=== PATIENT | female | born 1970 | race Caucasian/White ===

== ENCOUNTER 2016-04-10 14:06 | Emergency (ER) | payer MEDICAID, OTHER, SELFPAY ==
[2016-04-10] MEDS ORDERED: KETOROLAC 30 MG/ML VIAL (J1885) As Ordered ONE (16:05)
[2016-04-10] MEDS ORDERED: UNASYN 3 GM VIAL As Ordered ONE (16:07)
[2016-04-10 16:12] LABS: BASO % 0.3 % (0.0-1.0); EOS # 0.2 K/mm3 (0.0-0.50); EOS % 1.6 % (0.0-3.0); LARGE UNSTAINED CELL # 0.1 K/mm3 (0.0-0.4); LARGE UNSTAINED CELL % 1.4 % (0.0-4.0); LYMPH # 1.8 K/mm3 (1.5-4.5); LYMPH % 17.4 % (24.0-44.0); MEAN CORPUSCULAR HEMOGLOBIN 28.9 pg (27.0-33.0); MEAN CORPUSCULAR HGB CONC 32.7 g/dl (32.0-36.5); MEAN CORPUSCULAR VOLUME 88.5 fl (80.0-96.0); MONO # 0.6 K/mm3 (0.0-0.8); MONO % 5.6 % (0.0-5.0); NEUTROPHILS # 7.1 K/mm3 (1.8-7.7); NEUTROPHILS % 73.5 % (36.0-66.0); PLATELET COUNT, AUTOMATED 214 k/mm3 (150-450); RED CELL DISTRIBUTION WIDTH 12.7 % (11.5-14.5); WHITE BLOOD COUNT 9.7 K/mm3 (4.0-10.0)
[2016-04-10 16:28] LABS: ANION GAP 7 MEQ/L (8-16); BLOOD UREA NITROGEN 10 MG/DL (7-18); CALCIUM LEVEL 8.5 MG/DL (8.5-10.1); CARBON DIOXIDE LEVEL 26 MEQ/L (21-32); CHLORIDE LEVEL 108 MEQ/L (98-107); CREATININE FOR GFR 0.75 MG/DL (0.55-1.02); GLOMERULAR FILTRATION RATE > 60.0 (>58); GLUCOSE, FASTING 91 MG/DL (70-105); POTASSIUM SERUM 3.9 MEQ/L (3.5-5.1); SODIUM LEVEL 141 MEQ/L (136-145)
[2016-04-10] MEDS ORDERED: ISOVUE-370 76% 100ML VIAL (Q9967) As Ordered ONE (16:48)
--- NOTE | 2016-04-10 17:27 | REP ---
Clinical: Right facial swelling and pain. Technique: Axial contrast enhanced images from the skull base to the thoracic inlet with coronal and sagittal re-formations using 100 ml Isovue 370 intravenous contrast material. Findings: Right perimandibular inflammatory stranding is appreciated without abscess, drainable collection, or mass lesion. The osseous structures and dentition appear relatively normal. The visualized sinuses and mastoid air cells are clear. The orbits are symmetric. The nasopharyngeal and oropharyngeal airway is patent, midline and without mass effect. Mild right-sided prominent lymph nodes likely reactive. Impression: Right-sided perimandibular inflammatory stranding without abscess, mass, or drainable collection. Mild associated reactive lymph nodes. Signed by Eric Layne MD 04/10/2016 05:19 P
--- NOTE | 2016-04-10 17:38 | EDDOCDS ---
Physician Documentation [facility] Name: Teressa Suarez Age: 45 yrs Sex: Female : 1970 Arrival Date: 04/10/2016 Time: 14:06 Bed I3 / M3 Private MD: Addy Scales NC Disposition: 04/10/16 17:23 Discharged to Home/Self Care. Impression: Cellulitis of face - infected right lower molar without abscess. - Condition is Stable. - Discharge Instructions: Dental Abscess, Dental Pain. - Prescriptions for Augmentin 875- 125 mg Oral Tablet - take 1 tablet by ORAL route every 12 hours for 10 days; 20 tablet. Ibuprofen 600 mg Oral Tablet - take 1 tablet by ORAL route every 6 hours As needed take with food; 30 tablet. Ultram 50 mg Oral Tablet - take 1 tablet by ORAL route every 6 hours As needed MDD: 4 tabs; 20 tablet. - Medication Reconciliation, Local Pharmacy Hours form. - Follow up: Private Physician; When: As previously arranged; Reason: Recheck today's complaints, Continuance of care. Follow up: Emergency Department; When: As needed; Reason: Fever > 102F, Trouble breathing, Worsening of conditions. - Problem is new. - Symptoms have improved. Historical: - Allergies: no known allergies; - Home Meds: 1. none - PMHx: none; - PSHx: Cholecystectomy; Uterine Ablation; - Social history: Smoking status: Patient states was never smoker of tobacco. No barriers to communication noted, The patient speaks fluent Comoran, Speaks appropriately for age. - Family history: Not pertinent. - : The pt / caregiver states he / she is not on anticoagulants. Home medication list is obtained from the patient. - Exposure Risk Screening:: None identified. 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 7 in. (170.18 cm) (R); Pain 9/10; 17:10 Pain 0/10; mcp 14:08 Body Mass Index 30.54 (88.45 kg, 170.18 cm) gr2 MDM: 15:40 IV Saline Lock ordered. ar2 15:40 -Blood Culture (Adults Only), peripheral from different site, or from device/port/PICC ar2 etc. if present ordered. 15:40 NS 0.9% 1000 ml IV at bolus once ordered. ar2 15:40 ketorolac 30 mg IVP once ordered. ar2 15:40 Ampicillin-Sulbactam Sodium 3 grams IVPB once over 30 mins; dilute in 100mL of NS or ar2 D5W ordered. 15:41 CBC with Diff Ordered. EDMS 15:41 MED Profile Ordered. EDMS 15:41 -Blood Culture Ordered. EDMS 15:41 CT Neck With Contrast Ordered. EDMS 15:41 NOTHING BY MOUTH+DIET ordered. EDMS 15:49 Financial registration complete. [email or web address] 15:52 [facility] Payment Agreement was scanned into [employer] and attached to record. [email or web address] 15:56 BLOOD CULTURES Ordered. EDMS 16:03 -Blood Culture (Adults Only), peripheral from different site, or from device/port/PICC mcp etc. if present complete. 17:19 CBC with Diff Reviewed. ar2 17:19 MED Profile Reviewed. ar2 Administered Medications: 16:22 Drug: NS 0.9% 1000 ml [sodium chloride 0.9 % intravenous solution] Route: IV; Rate: mcp bolus; Site: right antecubital; 17:35 Follow up: IV Status: Completed infusion; IV Intake: 900ml mcp 16:22 Drug: ketorolac 30 mg [ketorolac 30 mg/mL (1 mL) injection solution (1 mL)] Route: IVP; mcp Site: right antecubital; 17:10 Follow up: Pain 0/10 Adult; Response: Pain is decreased mcp 16:22 Drug: Ampicillin-Sulbactam Sodium 3 grams [ampicillin-sulbactam 1.5 gram solution for mcp injection] Route: IVPB; Infused Over: 30 mins; Site: right antecubital; 17:35 Follow up: IV Status: Completed infusion; IV Intake: 100ml mcp Signatures: Dispatcher [employer] EDMS Marcy Epps RN RN [facility] Vanessa Gallego RN RN [facility] Raj Dash PA-C PACydney ar2 Vivienne Ruelas, Reg Reg [email or web address] The chart was reviewed and I authenticate all verbal orders and agree with the evaluation and treatment provided.Attachments: 15:52 [facility] Payment Agreement [email or web address] MTDD
--- NOTE | 2016-04-10 17:39 | EDDOCDS ---
Nurse's Notes [facility] Name: Teressa Suarez Age: 45 yrs Sex: Female : 1970 Arrival Date: 04/10/2016 Time: 14:06 Bed I3 / M3 Private MD: Addy Scales NCFM Diagnosis: Cellulitis of face-infected right lower molar without abscess Presentation: 04/10 14:20 Presenting complaint: Patient states: right lower jaw swelling for 3 days. saw DDS and srm sent here. no tooth pain prior to swelling. right side of face is swollen. Adult Sepsis Screening: The patient does not have new or worsening altered mentation. Patient's respiratory rate is less than 22. Systolic blood pressure is greater than 100. Patient has a qSOFA score of 0- Negative Sepsis Screen. Suicide/Homicide risk assessment- the patient denies having any suicidal and/or homicidal ideations and does not present with any other emotional, behavioral or mental health complaints. Status: Patient is not a customer technical services manager or dependent. Transition of care: patient was not received from another setting of care. 14:20 Acuity: SOPHIA Level 3 srm 14:20 Method Of Arrival: Walkin/Carried/Asstd srm Triage Assessment: 14:22 General: Appears in no apparent distress, Behavior is appropriate for age, cooperative. srm Pain: Pain currently is 8 out of 10 on a pain scale. 14:22 Pt Declines HIV testing. 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 none - PMHx: none; - PSHx: Cholecystectomy; Uterine Ablation; - Social history: Smoking status: Patient states was never smoker of tobacco. No barriers to communication noted, The patient speaks fluent Micronesian, Speaks appropriately for age. - Family history: Not pertinent. - : The pt / caregiver states he / she is not on anticoagulants. Home medication list is obtained from the patient. - Exposure Risk Screening:: None identified. Screenin:07 Screening information is obtained from the patient. Primary language is Micronesian. Fall jam1 risk: No risks identified. Assistance ADL's: requires no assistance with activities of daily living. Abuse/DV Screen: The patient / caregiver reports he/she is: not in a situation that causes fear, pain or injury. Nutritional screening: No deficits noted. Exposure Risk Screening: None identified. Advance Directives: Currently, there is no health care proxy. There is no active DNR order. There is no living will. There is no Power of Glass Sander. Advance directive information has not previously been placed in an [facility] medical record. Further advance directive information is declined. home support is adequate. Assessment: 16:23 General: Appears uncomfortable, Behavior is cooperative. Pain: Location: face Pain mcp currently is 6 out of 10 on a pain scale. Neurological: No deficits noted. EENT: right side of face swollen. Respiratory: Airway is patent Respiratory effort is even, unlabored. Derm: Skin is pink, warm & dry. 17:36 General: Appears in no apparent distress, comfortable, Behavior is cooperative. Pain: mcp Denies pain. Neurological: No deficits noted. Respiratory: Airway is patent Respiratory effort is even, unlabored. Derm: Skin is pink, warm & dry. Vital Signs: 14:08 BP 133 / 94; Pulse 114; Resp 18 S; Temp 98.0(O); Pulse Ox 97% on R/A; Weight 88.45 kg gr2 (R); Height 5 ft. 7 in. (170.18 cm) (R); Pain 9/10; 17:10 Pain 0/10; mcp 14:08 Body Mass Index 30.54 (88.45 kg, 170.18 cm) gr2 Vitals: 14:08 Log In Time: April 10, 2016 at 14:08. gr2 ED Course: 14:08 Patient visited by Amna Gomez. gr2 14:08 Addy Scales is Private Physician. gr2 14:08 Patient moved to Waiting gr2 14:09 Patient visited by Amna Gomez. gr2 14:09 Patient moved to Pre RCE gr2 14:21 Triage Initiated srm 15:03 Patient moved to I3 / M3 jam1 15:08 Pt greeted and oriented to ED. Patient advised of names of staff involved in care, jam1 location of call johnson, wait times and NPO status. Patient has correct armband on for positive identification. Placed in gown. Bed in low position. Call light in reach. Side rails up X 1. Door closed. 15:25 Raj Dash [facility] ar2 15:25 Hayden Fatima MD is Attending Physician. ar2 15:26 Patient visited by Raj Dash PA-C. ar2 15:52 [facility] Payment Agreement was scanned into [employer] and attached to record. [email or web address] 16:03 BLOOD CULTURES Sent. mcp 16:03 MED Profile Sent. [facility] 16:03 -Blood Culture Sent. [facility] 16:03 CBC with Diff Sent. [facility] 16:23 Inserted saline lock: 20 gauge in right antecubital area and blood collected. The [facility] patient tolerated the procedure well. Labs drawn. (by ED staff). Sent per order to lab. Labs/Blood culture drawn. 16:24 Patient visited by Vanessa Gallego RN. [facility] 16:24 The patient / caregiver is instructed regarding the plan of care and ED course. [facility] 17:36 Discontinued lock intact, bleeding controlled, pressure dressing applied, No mcp redness/swelling at site. No procedures done that require assistance. Administered Medications: 16:22 Drug: NS 0.9% 1000 ml [sodium chloride 0.9 % intravenous solution] Route: IV; Rate: mcp bolus; Site: right antecubital; 17:35 Follow up: IV Status: Completed infusion; IV Intake: 900ml [facility] 16:22 Drug: ketorolac 30 mg [ketorolac 30 mg/mL (1 mL) injection solution (1 mL)] Route: IVP; mcp Site: right antecubital; 17:10 Follow up: Pain 0/10 Adult; Response: Pain is decreased [facility] 16:22 Drug: Ampicillin-Sulbactam Sodium 3 grams [ampicillin-sulbactam 1.5 gram solution for mcp injection] Route: IVPB; Infused Over: 30 mins; Site: right antecubital; 17:35 Follow up: IV Status: Completed infusion; IV Intake: 100ml mcp Intake: 17:35 IV: 100.00ml; Total: 100.00ml. [facility] 17:35 IV: 900.00ml; Total: 1000.00ml. [facility] Order Results: Lab Order: CBC with Diff; SPEC'M 04/10/16 15:56 Test: WHITE BLOOD COUNT; Value: 9.7; Range: 4.0-10.0; Units: K/mm3; Status: F Test: RED BLOOD COUNT; Value: 4.94; Range: 4.00-5.40; Units: M/mm3; Status: F Test: HEMOGLOBIN; Value: 14.3; Range: 12.0-16.0; Units: g/dl; Status: F Test: HEMATOCRIT; Value: 43.7; Range: 36.0-47.0; Units: %; Status: F Test: MEAN CORPUSCULAR VOLUME; Value: 88.5; Range: 80.0-96.0; Units: fl; Status: F Test: MEAN CORPUSCULAR HEMOGLOBIN; Value: 28.9; Range: 27.0-33.0; Units: pg; Status: F Test: MEAN CORPUSCULAR HGB CONC; Value: 32.7; Range: 32.0-36.5; Units: g/dl; Status: F Test: RED CELL DISTRIBUTION WIDTH; Value: 12.7; Range: 11.5-14.5; Units: %; Status: F Test: PLATELET COUNT, AUTOMATED; Value: 214; Range: 150-450; Units: k/mm3; Status: F Test: NEUTROPHILS %; Value: 73.5; Range: 36.0-66.0; Abnormal: Above high normal; Units: %; Status: F Test: LYMPH %; Value: 17.4; Range: 24.0-44.0; Abnormal: Below low normal; Units: %; Status: F Test: MONO %; Value: 5.6; Range: 0.0-5.0; Abnormal: Above high normal; Units: %; Status: F Test: EOS %; Value: 1.6; Range: 0.0-3.0; Units: %; Status: F Test: BASO %; Value: 0.3; Range: 0.0-1.0; Units: %; Status: F Test: LARGE UNSTAINED CELL %; Value: 1.4; Range: 0.0-4.0; Units: %; Status: F Test: NEUTROPHILS #; Value: 7.1; Range: 1.8-7.7; Units: K/mm3; Status: F Test: LYMPH #; Value: 1.8; Range: 1.5-4.5; Units: K/mm3; Status: F Test: MONO #; Value: 0.6; Range: 0.0-0.8; Units: K/mm3; Status: F Test: EOS #; Value: 0.2; Range: 0.0-0.50; Units: K/mm3; Status: F Test: BASO #; Value: 0.0; Range: 0.0-0.2; Units: K/mm3; Status: F Test: LARGE UNSTAINED CELL #; Value: 0.1; Range: 0.0-0.4; Units: K/mm3; Status: F Lab Order: MED Profile; DEBORAH'El 04/10/16 15:56 Test: GLUCOSE, FASTING; Value: 91; Range: 70-105; Units: MG/DL; Status: F Test: BLOOD UREA NITROGEN; Value: 10; Range: 7-18; Units: MG/DL; Status: F Test: CREATININE FOR GFR; Value: 0.75; Range: 0.55-1.02; Units: MG/DL; Status: F Test: GLOMERULAR FILTRATION RATE; Value: > 60.0; Range: >58; Status: F Test: SODIUM LEVEL; Value: 141; Range: 136-145; Units: MEQ/L; Status: F Test: POTASSIUM SERUM; Value: 3.9; Range: 3.5-5.1; Units: MEQ/L; Status: F Test: CHLORIDE LEVEL; Value: 108; Range: 98-107; Abnormal: Above high normal; Units: MEQ/L; Status: F Test: CARBON DIOXIDE LEVEL; Value: 26; Range: 21-32; Units: MEQ/L; Status: F Test: ANION GAP; Value: 7; Range: 8-16; Abnormal: Below low normal; Units: MEQ/L; Status: F Test: CALCIUM LEVEL; Value: 8.5; Range: 8.5-10.1; Units: MG/DL; Status: F Test Note: ; Units are mL/min/1.73 m2 Chronic Kidney Disease Staging per NKF: Stage I & II GFR >=60 Normal to Mildly Decreased Stage III GFR 30-59 Moderately Decreased Stage IV GFR 15-29 Severely Decreased Stage V GFR <15 Very Little GFR Left ESRD GFR <15 on EXTRACTOR OPERATOR SOLVENT PROCESS Outcome: 17:23 Discharge ordered by Provider. ar2 17:36 Discharge Assessment: patient administered narcotics - no. The following High Risk mcp Discharge criteria are identified: None. Discharged to home ambulatory. Condition: stable. Discharge instructions given to patient, Instructed on discharge instructions, follow up and referral plans. medication usage, Demonstrated understanding of instructions, medications, Pt was receptive of discharge instructions/ teaching. Prescriptions given X 3. CT Study completed. Property sent home with patient. 17:38 Patient left the ED. [facility] Signatures: Marcy Epps, RN RN Vanessa Tony RN RN Ashley Ball, HAMILTON FINANCE CONTROLLER [email or web address] Raj Dash, PA-C PA-C [email or web address] Amna Gomez2 Vivienne Ruelas, Reg Reg [email or web address] MTDD
--- NOTE | 2016-04-12 18:39 | EDDOCDS ---
Physician Documentation [facility] Name: Teressa Suarez Age: 45 yrs Sex: Female : 1970 Arrival Date: 04/10/2016 Time: 14:06 Bed I3 / M3 Private MD: Addy Scales NC Disposition: 04/10/16 17:23 Discharged to Home/Self Care. Impression: Cellulitis of face - infected right lower molar without abscess. - Condition is Stable. - Discharge Instructions: Dental Abscess, Dental Pain. - Prescriptions for Augmentin 875- 125 mg Oral Tablet - take 1 tablet by ORAL route every 12 hours for 10 days; 20 tablet. Ibuprofen 600 mg Oral Tablet - take 1 tablet by ORAL route every 6 hours As needed take with food; 30 tablet. Ultram 50 mg Oral Tablet - take 1 tablet by ORAL route every 6 hours As needed MDD: 4 tabs; 20 tablet. - Medication Reconciliation, Local Pharmacy Hours form. - Follow up: Private Physician; When: As previously arranged; Reason: Recheck today's complaints, Continuance of care. Follow up: Emergency Department; When: As needed; Reason: Fever > 102F, Trouble breathing, Worsening of conditions. - Problem is new. - Symptoms have improved. Historical: - Allergies: no known allergies; - Home Meds: 1. none - PMHx: none; - PSHx: Cholecystectomy; Uterine Ablation; - Social history: Smoking status: Patient states was never smoker of tobacco. No barriers to communication noted, The patient speaks fluent [place], Speaks appropriately for age. - Family history: Not pertinent. - : The pt / caregiver states he / she is not on anticoagulants. Home medication list is obtained from the patient. - Exposure Risk Screening:: None identified. 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 7 in. (170.18 cm) (R); Pain 9/10; 17:10 Pain 0/10; mcp 17:38 BP 132 / 95; Pulse 99; Resp 18; Temp 96.1(T); Pulse Ox 98% on R/A; Pain 0/10; mcp 14:08 Body Mass Index 30.54 (88.45 kg, 170.18 cm) gr2 MDM: 15:40 IV Saline Lock ordered. ar2 15:40 -Blood Culture (Adults Only), peripheral from different site, or from device/port/PICC ar2 etc. if present ordered. 15:40 NS 0.9% 1000 ml IV at bolus once ordered. ar2 15:40 ketorolac 30 mg IVP once ordered. ar2 15:40 Ampicillin-Sulbactam Sodium 3 grams IVPB once over 30 mins; dilute in 100mL of NS or ar2 D5W ordered. 15:41 CBC with Diff Ordered. EDMS 15:41 MED Profile Ordered. EDMS 15:41 -Blood Culture Ordered. EDMS 15:41 CT Neck With Contrast Ordered. EDMS 15:41 NOTHING BY MOUTH+DIET ordered. EDMS 15:49 Financial registration complete. [email or web address] 15:52 [facility] Payment Agreement was scanned into [email or web address] and attached to record. [email or web address] 15:56 BLOOD CULTURES Ordered. EDMS 16:03 -Blood Culture (Adults Only), peripheral from different site, or from device/port/PICC mcp etc. if present complete. 17:19 CBC with Diff Reviewed. ar2 17:19 MED Profile Reviewed. ar2 04/11 09:36 T-Sheet-- Draft Copy was scanned into [email or web address] and attached to record. gb 09:36 Radiology Report was scanned into [email or web address] and attached to record. gb Administered Medications: 04/10 16:22 Drug: NS 0.9% 1000 ml [sodium chloride 0.9 % intravenous solution] Route: IV; Rate: mcp bolus; Site: right antecubital; 17:35 Follow up: IV Status: Completed infusion; IV Intake: 900ml mcp 16:22 Drug: ketorolac 30 mg [ketorolac 30 mg/mL (1 mL) injection solution (1 mL)] Route: IVP; mcp Site: right antecubital; 17:10 Follow up: Pain 0/10 Adult; Response: Pain is decreased mcp 16:22 Drug: Ampicillin-Sulbactam Sodium 3 grams [ampicillin-sulbactam 1.5 gram solution for mcp injection] Route: IVPB; Infused Over: 30 mins; Site: right antecubital; 17:35 Follow up: IV Status: Completed infusion; IV Intake: 100ml [facility] Signatures: Dispatcher [employer] Marcy Campbell, RN RN Vanessa Tony RN RN Nichelle Herrera, Reg Reg gb Raj Dash, PAMaríaC PACydney ar2 Vivienne Ruelas, Reg Reg ks16 The chart was reviewed and I authenticate all verbal orders and agree with the evaluation and treatment provided.Attachments: 15:52 [facility] Payment Agreement [email or web address] 04/11 09:36 T-Sheet-- Draft Copy gb Chart Complete MTDD
--- NOTE | 2016-04-12 18:39 | EDDOCDS ---
Nurse's Notes [facility] Name: Teressa Suarez Age: 45 yrs Sex: Female : 1970 Arrival Date: 04/10/2016 Time: 14:06 Bed I3 / M3 Private MD: Addy Scales NCFM Diagnosis: Cellulitis of face-infected right lower molar without abscess Presentation: 04/10 14:20 Presenting complaint: Patient states: right lower jaw swelling for 3 days. saw DDS and srm sent here. no tooth pain prior to swelling. right side of face is swollen. Adult Sepsis Screening: The patient does not have new or worsening altered mentation. Patient's respiratory rate is less than 22. Systolic blood pressure is greater than 100. Patient has a qSOFA score of 0- Negative Sepsis Screen. Suicide/Homicide risk assessment- the patient denies having any suicidal and/or homicidal ideations and does not present with any other emotional, behavioral or mental health complaints. 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 Transition of care: patient was not received from another setting of care. 14:20 Acuity: SOPHIA Level 3 srm 14:20 Method Of Arrival: Walkin/Carried/Asstd srm Triage Assessment: 14:22 General: Appears in no apparent distress, Behavior is appropriate for age, cooperative. srm Pain: Pain currently is 8 out of 10 on a pain scale. 14:22 Pt Declines HIV testing. srm WATERSHED COORDINATOR: 14:22 LMP N/A - Uterine ablation srm Historical: - Allergies: no known allergies; - Home Meds: 1. none - PMHx: none; - PSHx: Cholecystectomy; Uterine Ablation; - Social history: Smoking status: Patient states was never smoker of tobacco. No barriers to communication noted, The patient speaks fluent Fijian, Speaks appropriately for age. - Family history: Not pertinent. - : The pt / caregiver states he / she is not on anticoagulants. Home medication list is obtained from the patient. - Exposure Risk Screening:: None identified. Screenin:07 Screening information is obtained from the patient. Primary language is Fijian. Fall jam1 risk: No risks identified. Assistance ADL's: requires no assistance with activities of daily living. Abuse/DV Screen: The patient / caregiver reports he/she is: not in a situation that causes fear, pain or injury. Nutritional screening: No deficits noted. Exposure Risk Screening: None identified. Advance Directives: Currently, there is no health care proxy. There is no active DNR order. There is no living will. There is no Power of Residential Substance Abuse Counselor. Advance directive information has not previously been placed in an [facility] medical record. Further advance directive information is declined. home support is adequate. Assessment: 16:23 General: Appears uncomfortable, Behavior is cooperative. Pain: Location: face Pain mcp currently is 6 out of 10 on a pain scale. Neurological: No deficits noted. EENT: right side of face swollen. Respiratory: Airway is patent Respiratory effort is even, unlabored. Derm: Skin is pink, warm & dry. 17:36 General: Appears in no apparent distress, comfortable, Behavior is cooperative. Pain: mcp Denies pain. Neurological: No deficits noted. Respiratory: Airway is patent Respiratory effort is even, unlabored. Derm: Skin is pink, warm & dry. Vital Signs: 14:08 BP 133 / 94; Pulse 114; Resp 18 S; Temp 98.0(O); Pulse Ox 97% on R/A; Weight 88.45 kg gr2 (R); Height 5 ft. 7 in. (170.18 cm) (R); Pain 9/10; 17:10 Pain 0/10; mcp 17:38 BP 132 / 95; Pulse 99; Resp 18; Temp 96.1(T); Pulse Ox 98% on R/A; Pain 0/10; mcp 14:08 Body Mass Index 30.54 (88.45 kg, 170.18 cm) gr2 Vitals: 14:08 Log In Time: April 10, 2016 at 14:08. gr2 ED Course: 14:08 Patient visited by Amna Gomez. gr2 14:08 Addy Scales is Private Physician. gr2 14:08 Patient moved to Waiting gr2 14:09 Patient visited by Amna Gomez. gr2 14:09 Patient moved to Pre RCE gr2 14:21 Triage Initiated srm 15:03 Patient moved to I3 / M3 jam1 15:08 Pt greeted and oriented to ED. Patient advised of names of staff involved in care, [facility] location of call johnson, wait times and NPO status. Patient has correct armband on for positive identification. Placed in gown. Bed in low position. Call light in reach. Side rails up X 1. Door closed. 15:25 Raj Dash [facility]C [facility]. ar2 15:25 Hayden Fatima MD is Attending Physician. ar2 15:26 Patient visited by Raj Dash PA-C. ar2 15:52 [facility] Payment Agreement was scanned into [employer] and attached to record. [email or web address] 16:03 BLOOD CULTURES Sent. [facility] 16:03 MED Profile Sent. [facility] 16:03 -Blood Culture Sent. [facility] 16:03 CBC with Diff Sent. [facility] 16:23 Inserted saline lock: 20 gauge in right antecubital area and blood collected. The [facility] patient tolerated the procedure well. Labs drawn. (by ED staff). Sent per order to lab. Labs/Blood culture drawn. 16:24 Patient visited by Vanessa Gallego RN. [facility] 16:24 The patient / caregiver is instructed regarding the plan of care and ED course. [facility] 17:36 Discontinued lock intact, bleeding controlled, pressure dressing applied, No mcp redness/swelling at site. No procedures done that require assistance. 17:41 CT Neck With Contrast Returned. EDMS 04/11 09:36 T-Sheet-- Draft Copy was scanned into [employer] and attached to record. 09:36 Radiology Report was scanned into [employer] and attached to record. Administered Medications: 04/10 16:22 Drug: NS 0.9% 1000 ml [sodium chloride 0.9 % intravenous solution] Route: IV; Rate: mcp bolus; Site: right antecubital; 17:35 Follow up: IV Status: Completed infusion; IV Intake: 900ml [facility] 16:22 Drug: ketorolac 30 mg [ketorolac 30 mg/mL (1 mL) injection solution (1 mL)] Route: IVP; mcp Site: right antecubital; 17:10 Follow up: Pain 0/10 Adult; Response: Pain is decreased [facility] 16:22 Drug: Ampicillin-Sulbactam Sodium 3 grams [ampicillin-sulbactam 1.5 gram solution for mcp injection] Route: IVPB; Infused Over: 30 mins; Site: right antecubital; 17:35 Follow up: IV Status: Completed infusion; IV Intake: 100ml mcp Intake: 17:35 IV: 100.00ml; Total: 100.00ml. mcp 17:35 IV: 900.00ml; Total: 1000.00ml. mcp Order Results: Lab Order: CBC with Diff; SPEC'M 04/10/16 15:56 Test: WHITE BLOOD COUNT; Value: 9.7; Range: 4.0-10.0; Units: K/mm3; Status: F Test: RED BLOOD COUNT; Value: 4.94; Range: 4.00-5.40; Units: M/mm3; Status: F Test: HEMOGLOBIN; Value: 14.3; Range: 12.0-16.0; Units: g/dl; Status: F Test: HEMATOCRIT; Value: 43.7; Range: 36.0-47.0; Units: %; Status: F Test: MEAN CORPUSCULAR VOLUME; Value: 88.5; Range: 80.0-96.0; Units: fl; Status: F Test: MEAN CORPUSCULAR HEMOGLOBIN; Value: 28.9; Range: 27.0-33.0; Units: pg; Status: F Test: MEAN CORPUSCULAR HGB CONC; Value: 32.7; Range: 32.0-36.5; Units: g/dl; Status: F Test: RED CELL DISTRIBUTION WIDTH; Value: 12.7; Range: 11.5-14.5; Units: %; Status: F Test: PLATELET COUNT, AUTOMATED; Value: 214; Range: 150-450; Units: k/mm3; Status: F Test: NEUTROPHILS %; Value: 73.5; Range: 36.0-66.0; Abnormal: Above high normal; Units: %; Status: F Test: LYMPH %; Value: 17.4; Range: 24.0-44.0; Abnormal: Below low normal; Units: %; Status: F Test: MONO %; Value: 5.6; Range: 0.0-5.0; Abnormal: Above high normal; Units: %; Status: F Test: EOS %; Value: 1.6; Range: 0.0-3.0; Units: %; Status: F Test: BASO %; Value: 0.3; Range: 0.0-1.0; Units: %; Status: F Test: LARGE UNSTAINED CELL %; Value: 1.4; Range: 0.0-4.0; Units: %; Status: F Test: NEUTROPHILS #; Value: 7.1; Range: 1.8-7.7; Units: K/mm3; Status: F Test: LYMPH #; Value: 1.8; Range: 1.5-4.5; Units: K/mm3; Status: F Test: MONO #; Value: 0.6; Range: 0.0-0.8; Units: K/mm3; Status: F Test: EOS #; Value: 0.2; Range: 0.0-0.50; Units: K/mm3; Status: F Test: BASO #; Value: 0.0; Range: 0.0-0.2; Units: K/mm3; Status: F Test: LARGE UNSTAINED CELL #; Value: 0.1; Range: 0.0-0.4; Units: K/mm3; Status: F Lab Order: -Blood Culture; SPEC' 04/10/16 15:56 Test: BLOOD CULTURE; Value: No growth after 24 hours . All specimens observed; Status: F Test: BLOOD CULTURE; Value: for 5 days. Results final at that time.; Status: F Test: BLOOD CULTURE; Value: No Growth after 48 hours. All Specimens observed; Status: F Test: BLOOD CULTURE; Value: for 7 days. Results final at that time.; Status: F Lab Order: MED Profile; SPEC'M 04/10/16 15:56 Test: GLUCOSE, FASTING; Value: 91; Range: 70-105; Units: MG/DL; Status: F Test: BLOOD UREA NITROGEN; Value: 10; Range: 7-18; Units: MG/DL; Status: F Test: CREATININE FOR GFR; Value: 0.75; Range: 0.55-1.02; Units: MG/DL; Status: F Test: GLOMERULAR FILTRATION RATE; Value: > 60.0; Range: >58; Status: F Test: SODIUM LEVEL; Value: 141; Range: 136-145; Units: MEQ/L; Status: F Test: POTASSIUM SERUM; Value: 3.9; Range: 3.5-5.1; Units: MEQ/L; Status: F Test: CHLORIDE LEVEL; Value: 108; Range: 98-107; Abnormal: Above high normal; Units: MEQ/L; Status: F Test: CARBON DIOXIDE LEVEL; Value: 26; Range: 21-32; Units: MEQ/L; Status: F Test: ANION GAP; Value: 7; Range: 8-16; Abnormal: Below low normal; Units: MEQ/L; Status: F Test: CALCIUM LEVEL; Value: 8.5; Range: 8.5-10.1; Units: MG/DL; Status: F Test Note: ; Units are mL/min/1.73 m2 Chronic Kidney Disease Staging per NKF: Stage I & II GFR >=60 Normal to Mildly Decreased Stage III GFR 30-59 Moderately Decreased Stage IV GFR 15-29 Severely Decreased Stage V GFR <15 Very Little GFR Left ESRD GFR <15 on CARDIOLOGY SPECIALIST Lab Order: BLOOD CULTURES; SPEC'M 04/10/16 15:56 Test: BLOOD CULTURE; Value: No growth after 24 hours . All specimens observed; Status: F Test: BLOOD CULTURE; Value: for 5 days. Results final at that time.; Status: F Test: BLOOD CULTURE; Value: No Growth after 48 hours. All Specimens observed; Status: F Test: BLOOD CULTURE; Value: for 7 days. Results final at that time.; Status: F Radiology Order: CT Neck With Contrast Test: CT Neck With Contrast REASON FOR EXAMINATION: right facial pain, swelling; Clinical: Right facial swelling and pain.; ; Technique: Axial contrast enhanced images from the skull base to the thoracic; inlet with coronal and sagittal re-formations using 100 ml Isovue 370 intravenous; contrast material.; ; Findings:; Right perimandibular inflammatory stranding is appreciated without abscess,; drainable collection, or mass lesion. The osseous structures and dentition; appear relatively normal. The visualized sinuses and mastoid air cells are; clear. The orbits are symmetric. The nasopharyngeal and oropharyngeal airway is; patent, midline and without mass effect. Mild right-sided prominent lymph nodes; likely reactive.; ; Impression:; Right-sided perimandibular inflammatory stranding without abscess, mass, or; drainable collection. Mild associated reactive lymph nodes.; ; ; Signed by; Eric Layne MD 04/10/2016 05:19 P; Outcome: 17:23 Discharge ordered by Provider. ar2 17:36 Discharge Assessment: patient administered narcotics - no. The following High Risk mcp Discharge criteria are identified: None. Discharged to home ambulatory. Condition: stable. Discharge instructions given to patient, Instructed on discharge instructions, follow up and referral plans. medication usage, Demonstrated understanding of instructions, medications, Pt was receptive of discharge instructions/ teaching. Prescriptions given X 3. CT Study completed. Property sent home with patient. 17:38 Patient left the ED. [facility] Signatures: Dispatcher [employer] EDMS Marcy Epps, RN RN Vanessa Tony RN RN Ashley Ball, HEALTHCARE INSURANCE SALES AGENT HEALTHCARE INSURANCE SALES AGENT jam1 Nichelle Calles, Reg Reg gb Raj Dash, PACydney PACydney ar2 Amna Gomez gr2 Vivienne Ruelas, Reg Reg [email or web address] Chart Complete MTDD
--- NOTE | 2016-04-12 18:39 | EDDOCDS ---
Physician Documentation [facility] Name: Teressa Suarez Age: 45 yrs Sex: Female : 1970 Arrival Date: 04/10/2016 Time: 14:06 Bed I3 / M3 Private MD: Addy Scales NC Disposition: 04/10/16 17:23 Discharged to Home/Self Care. Impression: Cellulitis of face - infected right lower molar without abscess. - Condition is Stable. - Discharge Instructions: Dental Abscess, Dental Pain. - Prescriptions for Augmentin 875- 125 mg Oral Tablet - take 1 tablet by ORAL route every 12 hours for 10 days; 20 tablet. Ibuprofen 600 mg Oral Tablet - take 1 tablet by ORAL route every 6 hours As needed take with food; 30 tablet. Ultram 50 mg Oral Tablet - take 1 tablet by ORAL route every 6 hours As needed MDD: 4 tabs; 20 tablet. - Medication Reconciliation, Local Pharmacy Hours form. - Follow up: Private Physician; When: As previously arranged; Reason: Recheck today's complaints, Continuance of care. Follow up: Emergency Department; When: As needed; Reason: Fever > 102F, Trouble breathing, Worsening of conditions. - Problem is new. - Symptoms have improved. Historical: - Allergies: no known allergies; - Home Meds: 1. none - PMHx: none; - PSHx: Cholecystectomy; Uterine Ablation; - Social history: Smoking status: Patient states was never smoker of tobacco. No barriers to communication noted, The patient speaks fluent [place], Speaks appropriately for age. - Family history: Not pertinent. - : The pt / caregiver states he / she is not on anticoagulants. Home medication list is obtained from the patient. - Exposure Risk Screening:: None identified. FORMULATOR: 04/10 14:22 LMP N/A - Uterine ablation srm Vital Signs: 14:08 BP 133 / 94; Pulse 114; Resp 18 S; Temp 98.0(O); Pulse Ox 97% on R/A; Weight 88.45 kg / gr2 195 lbs (R); Height 5 ft. 7 in. (170.18 cm) (R); Pain 9/10; 17:10 Pain 0/10; mcp 17:38 BP 132 / 95; Pulse 99; Resp 18; Temp 96.1(T); Pulse Ox 98% on R/A; Pain 0/10; mcp 14:08 Body Mass Index 30.54 (88.45 kg, 170.18 cm) gr2 MDM: 15:40 IV Saline Lock ordered. ar2 15:40 -Blood Culture (Adults Only), peripheral from different site, or from device/port/PICC ar2 etc. if present ordered. 15:40 NS 0.9% 1000 ml IV at bolus once ordered. ar2 15:40 ketorolac 30 mg IVP once ordered. ar2 15:40 Ampicillin-Sulbactam Sodium 3 grams IVPB once over 30 mins; dilute in 100mL of NS or ar2 D5W ordered. 15:41 CBC with Diff Ordered. EDMS 15:41 MED Profile Ordered. EDMS 15:41 -Blood Culture Ordered. EDMS 15:41 CT Neck With Contrast Ordered. EDMS 15:41 NOTHING BY MOUTH+DIET ordered. EDMS 15:49 Financial registration complete. [email or web address] 15:52 [facility] Payment Agreement was scanned into [employer] and attached to record. [email or web address] 15:56 BLOOD CULTURES Ordered. EDMS 16:03 -Blood Culture (Adults Only), peripheral from different site, or from device/port/PICC mcp etc. if present complete. 17:19 CBC with Diff Reviewed. ar2 17:19 MED Profile Reviewed. ar2 04/11 09:36 T-Sheet-- Draft Copy was scanned into [employer] and attached to record. gb 09:36 Radiology Report was scanned into [employer] and attached to record. gb Administered Medications: 04/10 16:22 Drug: NS 0.9% 1000 ml [sodium chloride 0.9 % intravenous solution] Route: IV; Rate: mcp bolus; Site: right antecubital; 17:35 Follow up: IV Status: Completed infusion; IV Intake: 900ml mcp 16:22 Drug: ketorolac 30 mg [ketorolac 30 mg/mL (1 mL) injection solution (1 mL)] Route: IVP; mcp Site: right antecubital; 17:10 Follow up: Pain 0/10 Adult; Response: Pain is decreased mcp 16:22 Drug: Ampicillin-Sulbactam Sodium 3 grams [ampicillin-sulbactam 1.5 gram solution for mcp injection] Route: IVPB; Infused Over: 30 mins; Site: right antecubital; 17:35 Follow up: IV Status: Completed infusion; IV Intake: 100ml [facility] Signatures: Dispatcher [employer] Marcy Campbell, RN RN Vanessa Tony RN RN Nichelle Herrera, Reg Reg gb Raj Dash, PAMaríaC PACydney ar2 Vivienne Ruelas, Reg Reg [email or web address] The chart was reviewed and I authenticate all verbal orders and agree with the evaluation and treatment provided.Attachments: 15:52 [facility] Payment Agreement [email or web address] 04/11 09:36 T-Sheet-- Draft Copy gb Chart Complete MTDD
== END 2016-04-10 17:38 | disposition home or self-care (01) ==
LOC: M ED 14:06
DX: K08.89 Other specified disorders of teeth and supporting structures (principal); L03.211 Cellulitis of face
CPT/HCPCS: 36415; 70491; 80048; 85025; 87040; 96365; 96375; 99284; J1885; Q9967

== ENCOUNTER → 2016-12-14 | Outpatient (CLI) | payer MEDICAID, OTHER ==
--- NOTE | 2016-12-14 17:15 | REP ---
RIGHT FOOT: Four views of the right foot are performed and demonstrate no fracture or dislocation. There is mild posterior calcaneal spurring. IMPRESSION: No acute fracture or dislocation. Signed by Porter El MD 12/17/2016 09:55 A
== END ==
LOC: M ADAMS 15:09
PROVIDERS: ATTEND Physician Assistant Medical
DX: S90.31XA Contusion of right foot, initial encounter (principal); X58.XXXA Exposure to other specified factors, initial encounter; Y92.89 Other specified places as the place of occurrence of the external cause; Y93.89 Activity, other specified; Y99.8 Other external cause status

== ENCOUNTER → 2018-05-13 | Outpatient (REF) | payer OTHER ==
[2018-05-13 14:16] LABS: BASO % 0.7 % (0.0-1.0); EOS # 0.1 10^3/uL (0.0-0.50); EOS % 1.7 % (0.0-3.0); HEMOGLOBIN 14.2 g/dl (12.0-15.5); LYMPH # 1.5 10^3/uL (1.5-4.5); LYMPH % 26.5 % (24.0-44.0); MEAN CORPUSCULAR HGB CONC 32.3 g/dl (32.0-36.5); MONO # 0.6 10^3/uL (0.0-0.8); NEUTROPHILS # 3.5 10^3/uL (1.8-7.7); NEUTROPHILS % 60.8 % (36.0-66.0); PLATELET COUNT, AUTOMATED 201 10^3/uL (150-450); RED BLOOD COUNT 4.89 10^6/uL (4.00-5.40); WHITE BLOOD COUNT 5.8 10^3/uL (4.0-10.0)
[2018-05-13 14:35] LABS: ALBUMIN 3.9 GM/DL (3.2-5.2); ALT/SGPT 12 U/L (12-78); BILIRUBIN,TOTAL 0.6 MG/DL (0.2-1.0); BLOOD UREA NITROGEN 11 MG/DL (7-18); CALCIUM LEVEL 8.3 MG/DL (8.5-10.1); CARBON DIOXIDE LEVEL 26 MEQ/L (21-32); CHLORIDE LEVEL 110 MEQ/L (98-107); CHOLESTEROL LEVEL 163 MG/DL (<200); CHOLESTEROL RISK RATIO 3.622 (<5); CREATININE FOR GFR 0.67 MG/DL (0.55-1.30); GLOMERULAR FILTRATION RATE > 60.0 (>58); GLUCOSE, FASTING 85 MG/DL (70-100); HDL CHOLESTEROL 45 MG/DL (>40); LDL CHOLESTEROL 104 MG/DL (<100); NON-HDL-C 118 MG/DL; SODIUM LEVEL 141 MEQ/L (136-145); TOTAL PROTEIN 6.9 GM/DL (6.4-8.2); TRIGLYCERIDES LEVEL 69 MG/DL (<150)
== END ==
LOC: M LABDRAW1 13:17
PROVIDERS: ATTEND Nurse Practitioner Family
DX: Z13.220 Encounter for screening for lipoid disorders (principal); K21.9 Gastro-esophageal reflux disease without esophagitis; F34.1 Dysthymic disorder

== ENCOUNTER → 2021-02-27 | Outpatient (CLI) | payer OTHER ==
--- NOTE | 2021-02-27 11:01 | REPMRS ---
Patient History The patient states she had a clinical breast exam in February 2020. Family history of breast cancer under age 50 in maternal aunt, breast cancer under age 50 in mother, ovarian cancer at age 50 or over in mother. Reductions of both breasts, 2012. Benign excisional biopsy of the left breast, 1990. Benign excisional biopsy of the left breast, 1988. Patient states no breast complaints today. Patient has signed MRS History Sheet. Digital Woman Screen Mammo: February 27, 2021 - Exam #: [id number] Bilateral CC and MLO view(s) were taken. Technologist: Mikayla Albright, Technologist Prior study comparison: July 14, 2013, right breast digital mammo diagnostic unilateral, performed at [facility]. June 29, 2013, digital woman screen mammo performed at [facility] and [facility]. FINDINGS: There are scattered fibroglandular densities. Screening. Digital screening (2D) mammography was performed bilaterally in the CC and MLO projections. Additionally, breast tomosynthesis (3D mammography) was performed bilaterally in the CC and MLO projections. Todays exam was compared to the prior exam/exams. By history, the patient has no complaints of a palpable breast abnormality or other significant breast complaints. The breasts are unchanged in size and shape. There are no rakel-soft tissue densities or spiculated masses. There is no internal architectural distortion. There are no suspicious rakel-calcific clusters. Skin thickening or nipple retraction is not present. IMPRESSION: BI-RADS Category 2- Benign Findings. There is no evidence of malignant alteration of the breasts. Followup examination recommended in one year. The Volpara volumetric breast density category is B, there are scattered areas of fibroglandular densities. This mammogram was read with the assistance of [facility],an FDA approved computer aided detection system for mammography. The lifetime Tyrer-Cuzick score is 26.3 % Due to the density of the breasts or Tyrer Cuzick score of 20% or greater, MRI/whole breast screening ultrasound is warranted. Negative x-ray reports should not delay surgical consultation if a dominant or clinically suspicious mass is present. Not all breast cancers can be identified by mammography. Therefore, we recommend that you continue to perform regular breast self-examination and physical examination and then promptly contact your physician of any concerns or changes. Adenosis and dense breasts may obscure an underlying neoplasm. Assessment: BI-RADS/ACR category 2 mammogram. Benign Findings. Recommendation Routine screening mammogram of both breasts in 1 year. Electronically Signed By: Erasto Vazquez DO 02/27/21 1100
== END ==
LOC: M WHC 09:53
PROVIDERS: ATTEND Physician Assistant Medical
DX: Z12.31 Encounter for screening mammogram for malignant neoplasm of breast (principal)

== ENCOUNTER → 2021-03-06 | Outpatient (REF) | payer SELFPAY ==
[2021-03-06 13:38] LABS: APPEARANCE, URINE HAZY (CLEAR); BACTERIA, URINE AUTO 2+ (NEGATIVE); BILIRUBIN, URINE AUTO NEGATIVE (NEGATIVE); BLOOD, URINE BLOOD 1+ (NEGATIVE); COLOR, URINE YELLOW (YELLOW); GLUCOSE, URINE (UA) AUTO NEGATIVE (NEGATIVE); KETONE, URINE AUTO NEGATIVE (NEGATIVE); LEUKOCYTE ESTERASE, URINE AUTO 3+ (NEGATIVE); NITRITE, URINE AUTO NEGATIVE (NEGATIVE); PROTEIN, URINE AUTO NEGATIVE (NEGATIVE); RBC, URINE AUTO 3 /HPF (0-3); SPECIFIC GRAVITY URINE AUTO 1.006 (1.002-1.035); SQUAMOUS EPITHELIAL CELL UR AU 7 /HPF (0-6); UROBILINOGEN, URINE AUTO 0.2 mg/dL (0.0-2.0); WBC, URINE AUTO 53 /HPF (0-3)
[2021-03-06 13:42] LABS: BASO % 0.5 % (0.0-1.0); EOS # 0.3 10^3/uL (0.0-0.5); EOS % 4.6 % (0.0-3.0); HEMATOCRIT 44.1 % (36.0-47.0); HEMOGLOBIN 14.2 g/dl (12.0-15.5); LYMPH # 1.6 10^3/uL (1.5-5.0); LYMPH % 29.1 % (24.0-44.0); MEAN CORPUSCULAR HEMOGLOBIN 28.3 pg (27.0-33.0); MEAN CORPUSCULAR HGB CONC 32.2 g/dl (32.0-36.5); MONO # 0.5 10^3/uL (0.0-0.8); MONO % 8.4 % (2.0-8.0); NEUTROPHILS # 3.1 10^3/uL (1.5-8.5); NEUTROPHILS % 57.2 % (36.0-66.0); PLATELET COUNT, AUTOMATED 231 10^3/uL (150-450); RED BLOOD COUNT 5.01 10^6/uL (4.00-5.40); WHITE BLOOD COUNT 5.5 10^3/uL (4.0-10.0)
[2021-03-06 13:57] LABS: CREATININE,RANDOM URINE 44.4 MG/DL; TOTAL PROTEIN,RANDOM URINE 12.6 MG/DL (0.0-12.0)
[2021-03-06 14:12] LABS: ALBUMIN 3.8 GM/DL (3.2-5.2); ALT/SGPT 94 U/L (12-78); BILIRUBIN,TOTAL 0.3 MG/DL (0.2-1.0); BLOOD UREA NITROGEN 9 MG/DL (7-18); CALCIUM LEVEL 8.5 MG/DL (8.5-10.1); CARBON DIOXIDE LEVEL 26 MEQ/L (21-32); CHLORIDE LEVEL 107 MEQ/L (98-107); CHOLESTEROL LEVEL 197 MG/DL (<200); CHOLESTEROL RISK RATIO 4.191 (<5); CREATININE FOR GFR 0.72 MG/DL (0.55-1.30); GLOMERULAR FILTRATION RATE > 60.0 (>58); GLUCOSE, FASTING 85 MG/DL (70-100); HDL CHOLESTEROL 47 MG/DL (>40); LDL CHOLESTEROL 133 MG/DL (<100); NON-HDL-C 150 MG/DL; POTASSIUM SERUM 4.2 MEQ/L (3.5-5.1); SODIUM LEVEL 139 MEQ/L (136-145); TOTAL PROTEIN 7.1 GM/DL (6.4-8.2); TRIGLYCERIDES LEVEL 85 MG/DL (<150)
[2021-03-06 14:49] LABS: CREATININE, URINE 85.8 MG/DL
[2021-03-06 14:50] LABS: MALB URINE SIEMENS 6.9 MG/L; MAU 24HR URINE 9.3 MG/24HR (0.0-30.0); MAU/MINUTE 6.5 MCG/MIN (0.0-20.0)
[2021-03-06 14:54] LABS: CREATININE CLEARANCE, URINE 114.9 ML/MIN (75-115); CREATININE, SERUM 0.7 MG/DL (0.6-1.0)
== END ==
LOC: M LABDRWAD 12:40
PROVIDERS: ATTEND Physician Assistant Surgical
DX: Z52.4 Kidney donor (principal)

== ENCOUNTER → 2021-05-27 | Outpatient (CLI) | payer OTHER ==
[~2021-05-27] MED LIST: ALPR0.5T3 PO; SERT50TA29 PO
== END ==
LOC: M LABSMTC 10:16
PROVIDERS: ATTEND Anesthesiology
DX: Z01.818 Encounter for other preprocedural examination (principal); Z11.52 Encounter for screening for COVID-19

== ENCOUNTER 2021-06-01 09:20 | Day surgery (SDC) | payer OTHER ==
[~2021-06-01] VITALS: Ht 172.7 cm; Wt 94.3 kg
[~2021-06-01 09:20] MED LIST changes: +NS 1,000 ML IV ONE
[2021-06-01] MEDS ORDERED: LIDOCAINE 2% 100MG/5ML SDV (FOR ANES.) As Ordered ONE (11:23)
[2021-06-01] MEDS ORDERED: propofoL 200 MG/20 ML VIAL As Ordered ONE (11:23)
[2021-06-01 12:33] VITALS: BP 140/81
== END 2021-06-01 12:50 | disposition home or self-care (01) ==
LOC: M OPP 09:20
PROVIDERS: ATTEND Surgery
DX: Z12.11 Encounter for screening for malignant neoplasm of colon (principal); Z79.899 Other long term (current) drug therapy

== ENCOUNTER → 2021-09-25 | Outpatient (CLI) | payer OTHER ==
[~2021-09-25] MED LIST changes: -NS 1,000 ML IV ONE; +PROHANCE 279.3MG/ML 15ML VIAL ONE; +PROHANCE 279.3MG/ML 5ML VIAL ONE
== END ==
LOC: M PLAIMG 13:40
PROVIDERS: ATTEND Physician Assistant Medical
DX: Z15.01 Genetic susceptibility to malignant neoplasm of breast (principal); Z80.3 Family history of malignant neoplasm of breast; Z98.890 Other specified postprocedural states
CPT/HCPCS: 77049; A9576

== ENCOUNTER → 2022-05-16 | Outpatient (REF) | payer BC, OTHER ==
[~2022-05-16] MED LIST changes: -PROHANCE 279.3MG/ML 15ML VIAL ONE; -PROHANCE 279.3MG/ML 5ML VIAL ONE
== END ==
LOC: M SFHCADAM 10:54
PROVIDERS: ATTEND Physician Assistant Medical
DX: Z53.9 Procedure and treatment not carried out, unspecified reason (principal)

== ENCOUNTER → 2024-05-20 | Outpatient (REF) | payer MEDICARE ==
[2024-05-20 13:35] LABS: BASO % 0.5 % (0.0-1.0); EOS # 0.1 10^3/uL (0.0-0.5); EOS % 1.6 % (0.0-3.0); HEMOGLOBIN 14.3 g/dl (12.0-15.5); LYMPH # 1.3 10^3/uL (1.5-5.0); MEAN CORPUSCULAR HEMOGLOBIN 28.4 pg (27.0-33.0); MEAN CORPUSCULAR HGB CONC 31.8 g/dl (32.0-36.5); MEAN CORPUSCULAR VOLUME 89.3 fl (80.0-96.0); MONO # 0.5 10^3/uL (0.0-0.8); MONO % 14.2 % (2.0-8.0); NEUTROPHILS # 1.8 10^3/uL (1.5-8.5); NEUTROPHILS % 48.4 % (36.0-66.0); PLATELET COUNT, AUTOMATED 162 10^3/uL (150-450); RED BLOOD COUNT 5.04 10^6/uL (4.00-5.40); WHITE BLOOD COUNT 3.8 10^3/uL (4.0-10.0)
[2024-05-20 13:40] LABS: ALBUMIN 3.7 G/DL (3.2-5.2); ALKALINE PHOSPHATASE 65 U/L (35-104); ALT/SGPT 17 U/L (7.0-40); AST/SGOT 18 U/L (<34); BILIRUBIN,TOTAL 0.3 MG/DL (0.3-1.2); BLOOD UREA NITROGEN 6 MG/DL (9-23); CALCIUM LEVEL 8.5 MG/DL (8.5-10.1); CARBON DIOXIDE LEVEL 32 MMOL/L (20-31); CHLORIDE LEVEL 105 MMOL/L (98-107); CHOLESTEROL LEVEL 140 MG/DL (<200); CHOLESTEROL RISK RATIO 3.82 (<5); CREATININE FOR GFR 0.74 MG/DL (0.55-1.30); GLOMERULAR FILTRATION RATE > 60.0 (>51); GLUCOSE, FASTING 70 MG/DL (60-100); HDL CHOLESTEROL 36.6 MG/DL (>40); LDL CHOLESTEROL 78.8 MG/DL (<100); NON-HDL-C 103.4 MG/DL; POTASSIUM SERUM 4.4 MMOL/L (3.5-5.1); SODIUM LEVEL 142 MMOL/L (136-145); TRIGLYCERIDES LEVEL 123 MG/DL (<150)
[2024-05-20 13:41] LABS: TOTAL 25(OH) VITAMIN D 20.3 NG/ML (20.0-100.0)
[2024-05-20 13:42] LABS: THYROID STIMULATING HORMONE 5.037 uIU/ML (0.55-4.78)
== END ==
LOC: M SFHCADAM 08:36
PROVIDERS: ATTEND Physician Assistant Medical
DX: J45.20 Mild intermittent asthma, uncomplicated (principal); E66.9 Obesity, unspecified; F41.1 Generalized anxiety disorder; Z79.899 Other long term (current) drug therapy

== ENCOUNTER → 2024-06-30 | Outpatient (REF) | payer MEDICARE ==
[2024-06-30 17:58] LABS: ALBUMIN 3.8 G/DL (3.2-5.2); ALKALINE PHOSPHATASE 72 U/L (35-104); ALT/SGPT 13 U/L (7.0-40); AST/SGOT 13 U/L (<34); BILIRUBIN,TOTAL 0.3 MG/DL (0.3-1.2); BLOOD UREA NITROGEN 13 MG/DL (9-23); CALCIUM LEVEL 8.5 MG/DL (8.5-10.1); CARBON DIOXIDE LEVEL 31 MMOL/L (20-31); CHLORIDE LEVEL 106 MMOL/L (98-107); CREATININE FOR GFR 0.73 MG/DL (0.55-1.30); GLOMERULAR FILTRATION RATE > 90.0 (>51); GLUCOSE, FASTING 103 MG/DL (60-100); POTASSIUM SERUM 3.9 MMOL/L (3.5-5.1); SODIUM LEVEL 141 MMOL/L (136-145); TOTAL PROTEIN 6.5 G/DL (5.7-8.2)
[2024-06-30 17:59] LABS: FREE T4 1.05 NG/DL (0.89-1.76)
[2024-06-30 18:01] LABS: THYROID STIMULATING HORMONE 2.248 uIU/ML (0.55-4.78)
== END ==
LOC: M SFHCADAM 14:12
PROVIDERS: ATTEND Family Medicine
DX: R42 Dizziness and giddiness (principal); E07.9 Disorder of thyroid, unspecified

== ENCOUNTER → 2024-11-23 | Outpatient (REF) | payer MEDICARE ==
[~2024-11-23] MED LIST changes: +MONT10TA97; +TRAZ-252; +VITA200032
[2024-11-23 13:46] LABS: BASO # 0.1 10^3/uL (0.0-0.2); BASO % 1.2 % (0.0-1.0); EOS # 0.2 10^3/uL (0.0-0.5); EOS % 2.6 % (0.0-3.0); LYMPH # 1.7 10^3/uL (1.5-5.0); LYMPH % 29.4 % (24.0-44.0); MONO # 0.6 10^3/uL (0.0-0.8); MONO % 10.6 % (2.0-8.0); NEUTROPHILS # 3.2 10^3/uL (1.5-8.5); NEUTROPHILS % 55.8 % (36.0-66.0); PLATELET COUNT, AUTOMATED 200 10^3/uL (150-450)
[2024-11-23 14:05] LABS: APPEARANCE, URINE CLEAR (CLEAR); BACTERIA, URINE AUTO 1+ (NEGATIVE); BILIRUBIN, URINE AUTO NEGATIVE (NEGATIVE); BLOOD, URINE BLOOD 1+ (NEGATIVE); GLUCOSE, URINE (UA) AUTO NEGATIVE (NEGATIVE); KETONE, URINE AUTO NEGATIVE (NEGATIVE); LEUKOCYTE ESTERASE, URINE AUTO TRACE (NEGATIVE); NITRITE, URINE AUTO NEGATIVE (NEGATIVE); PROTEIN, URINE AUTO NEGATIVE (NEGATIVE); RBC, URINE AUTO 0 /HPF (0-3); SPECIFIC GRAVITY URINE AUTO 1.004 (1.002-1.035); SQUAMOUS EPITHELIAL CELL UR AU 0 /HPF (0-6); UROBILINOGEN, URINE AUTO 0.2 mg/dL (0.0-2.0); WBC, URINE AUTO 1 /HPF (0-3)
[2024-11-23 14:15] LABS: ALT/SGPT 11.0 U/L (7.0-40); AST/SGOT 13.0 U/L (<34); CALCIUM LEVEL 8.8 MG/DL (8.5-10.1); CARBON DIOXIDE LEVEL 29.0 MMOL/L (20-31); CHLORIDE LEVEL 103.0 MMOL/L (98-107); CHOLESTEROL LEVEL 185.0 MG/DL (<200); CHOLESTEROL RISK RATIO 3.83 (<5); CREATININE FOR GFR 0.83 MG/DL (0.55-1.30); GLOMERULAR FILTRATION RATE 84.2 (>51); LDL CHOLESTEROL 120.5 MG/DL (<100); NON-HDL-C 136.7 MG/DL; POTASSIUM SERUM 4.0 MMOL/L (3.5-5.1); SODIUM LEVEL 142.0 MMOL/L (136-145); TRIGLYCERIDES LEVEL 81.0 MG/DL (<150)
[2024-11-23 14:16] LABS: FREE T4 1.05 NG/DL (0.89-1.76)
== END ==
LOC: M SFHCADAM 09:29
PROVIDERS: ATTEND Physician Assistant Medical
DX: R39.15 Urgency of urination (principal); E55.9 Vitamin D deficiency, unspecified; Z79.899 Other long term (current) drug therapy